=== PATIENT | female | born 1980 | race Caucasian/White ===

== ENCOUNTER 2018-02-21 13:48 | Emergency (ER) | payer MEDICARE, MEDICAID ==
[~2018-02-21] VITALS: Ht 160 cm; Wt 85.4 kg
[~2018-02-21 13:48] MED LIST: DEXT20TA8 PO
[2018-02-21 13:50] VITALS: BP 110/69
== END 2018-02-21 15:04 | disposition home or self-care (01) ==
LOC: ED 14:58
DX: S16.1XXA Strain of muscle, fascia and tendon at neck level, initial encounter (principal); V43.62XA Car passenger injured in collision with other type car in traffic accident, initial encounter; Y93.89 Activity, other specified; Y92.488 Other paved roadways as the place of occurrence of the external cause; Y99.8 Other external cause status
CPT/HCPCS: 72050; 99284

== ENCOUNTER → 2019-10-17 | Outpatient (CLI) | payer MEDICARE, MEDICAID ==
[2019-10-17 15:45] LABS: MICROSCOPIC AUTO
[2019-10-17 15:47] LABS: ALBUMIN 3.7 g/dL (3.4-5.0); ANION GAP 9 mmol/L (5-15); CALCIUM 9.3 mg/dL (8.5-10.1); CHLORIDE 110 mmol/L (98-107)
[2019-10-17 15:50] LABS: ALANINE AMINOTRANSFERASE 12 U/L (12-78); ALKALINE PHOSPHATASE 101 U/L (45-117); BILIRUBIN,TOTAL 1.8 mg/dL (0.2-1.0); CREATININE 0.95 mg/dL (0.55-1.02); TOTAL PROTEIN 8.2 g/dL (6.4-8.2)
[2019-10-17 16:06] LABS: CULTURE INDICATED? YES
[2019-10-17 16:10] LABS: CHLORIDE,URINE RANDOM 214 mmol/L; POTASSIUM,URINE RANDOM 72 mmol/L; SODIUM,URINE RANDOM 171 mmol/L
== END | disposition home or self-care (01) ==
LOC: LAB 14:47
PROVIDERS: ATTEND Nurse Practitioner Family
DX: E87.2 Acidosis (principal); R82.90 Unspecified abnormal findings in urine; R06.09 Other forms of dyspnea
CPT/HCPCS: 36600; 80053; 81001; 82436; 82803; 84133; 84300; 87077; 87086; 87186